=== PATIENT | male | born 2005 | race Two or more races ===

== ENCOUNTER → 2024-03-18 | Outpatient (CLI) | payer MEDICAID, SELFPAY ==
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
== END | disposition home or self-care (01) ==
PROVIDERS: PCP Physician Assistant; Referring Provider Physician Assistant; Visit Provider Physician Assistant
DX: S43.102A Unspecified dislocation of left acromioclavicular joint, initial encounter (principal); V89.2XXA Person injured in unspecified motor-vehicle accident, traffic, initial encounter
CPT/HCPCS: 73030

== ENCOUNTER → 2024-08-01 | Outpatient (CLI) | payer MEDICAID, SELFPAY ==
--- NOTE | 2024-08-01 15:00 | XR_ITS ---
Examination: Abdomen sonogram, complete Date and time of exam: August 01, 2024 1458 hours INDICATIONS: Left flank pain beginning 2 days ago. Technique: Multiple real-time grayscale transabdominal sonographic images of the abdomen have been obtained. Findings: Cholelithiasis Gallbladder wall is thickened 0.7 cm Normal common bile duct 0.3 cm Pancreatic head 2.1 cm Aorta not enlarged Liver 13 cm no liver lesions Normal hepatopedal portal venous flow Patent IVC Right kidney 8.5 cm cortex 2.3 cm Left kidney 11.5 cm cortex 1.8 cm Spleen 9.9 cm IMPRESSION: Cholelithiasis, recommend HIDA scan or MRCP follow-up to exclude cholecystitis No renal calculi or hydronephrosis
== END | disposition home or self-care (01) ==
LOC: CDIM 14:38
PROVIDERS: PCP Physician Assistant; Referring Provider Physician Assistant; Visit Provider Physician Assistant
DX: K80.20 Calculus of gallbladder without cholecystitis without obstruction (principal)
CPT/HCPCS: 76700